=== PATIENT | male | born 1965 | race Caucasian/White ===

== ENCOUNTER 2017-01-29 22:13 | Emergency (ER) | payer MEDICAID ==
[~2017-01-29] VITALS: Ht 157.5 cm; Wt 90.7 kg
--- NOTE | 2017-01-29 22:40 | NUR ---
Urine obtained & sent to lab.
--- NOTE | 2017-01-29 22:53 | NUR ---
SUKI Keane at bedside for further eval.
[2017-01-29 23:14] LABS: APPEARANCE,URINE CLEAR (CLEAR); BILIRUBIN,URINE NEGATIVE (NEGATIVE); BLOOD, URINE 1+ Ery/uL (NEGATIVE); COLOR,URINE YELLOW (YELLOW); KETONES,URINE 1+ (NEGATIVE); LEUKOCYTE ESTERASE ,URINE NEGATIVE (NEGATIVE); NITRITE, URINE NEGATIVE (NEGATIVE); PROTEIN,URINE NEGATIVE (NEGATIVE); UGLUCOSE NEGATIVE (NEGATIVE); UROBILINOGEN,URINE 0.2 EU/dL (0.2)
[2017-01-29 23:20] LABS: BACTERIA,URINE None seen /HPF (None Seen); RBC,URINE 0-2 /HPF (0-2); SQUAMOUS EPITHELIAL CELL,UR Few /HPF (None Seen); WBC,URINE 0-2 /HPF (0-3)
[2017-01-29] MEDS ORDERED: ACETAMINOPHEN 325 MG TABLET PO ONE (23:30)
--- NOTE | 2017-01-29 23:31 | NUR ---
pt ambulatory w/ steady gait to restroom.
[2017-01-29] MEDS ORDERED: ACETAMINOPHEN 325 MG TABLET ONE (23:36)
--- NOTE | 2017-01-29 23:39 | NUR ---
SUKI Keane at bedside for update on pt status.
--- NOTE | 2017-01-29 23:45 | NUR ---
Patient discharged to home in stable condition. Written and verbal after care instructions given. Patient verbalizes understanding of instruction.
[2017-01-29 23:46] VITALS: BP 121/91
== END 2017-01-29 23:57 | disposition home or self-care (01) ==
LOC: ER 22:13
DX: R30.0 Dysuria (principal); I10 Essential (primary) hypertension
CPT/HCPCS: 81001; 99283; A4606; Z7610; 81000-TC